=== PATIENT | male | born 1965 | race Caucasian/White ===

== ENCOUNTER 2018-02-23 10:05 | Day surgery (SDC) | payer MEDICAID ==
[2018-02-23] VITALS (10 sets, daily range): BP systolic 106–158; BP diastolic 48–85
[~2018-02-23] VITALS: Ht 182.9 cm; Wt 101.8 kg
[2018-02-23] MEDS ORDERED: diphenhydrAMINE 25mg capsule PO PRN (10:40)
[2018-02-23] MEDS ORDERED: normal saline 1000ml 1,000 ML IV SCH ×2 (10:40→14:10)
[2018-02-23] MEDS ORDERED: nitroGLYCERIN 0.4mg SUBLingual tab SL PRN (10:40)
[2018-02-23] MEDS ORDERED: LORazepam 0.5 MG tablet PO PRN (10:40)
[2018-02-23] MEDS ORDERED: PRAV40TA3 PO (10:44)
[2018-02-23] MEDS ORDERED: ASPI-611 PO (10:44)
[2018-02-23] MEDS ORDERED: marijuana INH (10:44)
[2018-02-23] MEDS ORDERED: ATEN25TA PO (10:44)
[2018-02-23] MEDS ORDERED: DIGO-28 PO (10:44)
[2018-02-23] MEDS ORDERED: LIDOcaine 1% 30ml preserv. free vial ONE (12:11)
[2018-02-23] MEDS ORDERED: iohexol 350 MG/ML 50ML vial IV ONE (12:11)
[2018-02-23] MEDS ORDERED: midazolam 2 mg/2 ml injection ONE ×2 (12:11→12:36)
[2018-02-23] MEDS ORDERED: fentaNYL/PF 50MCG/1 ML 2ML syringe ONE (12:11)
[2018-02-23] MEDS ORDERED: iohexol 350MG/ML 100ml bottle IV ONE (12:11)
[2018-02-23 13:56] LABS: ISTAT Hct MIX 40 %PCV (42-52); ISTAT O2 SATURATION MIX VENOUS 66 % (60-80); ISTAT SOURCE MIX
[2018-02-23 13:56] LABS: ISTAT HGB ART 13.3 g/dl (14.0-18.0); ISTAT Hct ART 39 %PCV (42-52); ISTAT O2 SATURATION ARTERIAL 95 % (95-98); ISTAT SOURCE ART
[2018-02-23] MEDS ORDERED: proCHLORperazine 10 MG/2 ml inj IV PRN (14:10)
[2018-02-23] MEDS ORDERED: OXAZEpam 15mg capsule PO PRN (14:10)
[2018-02-23] MEDS ORDERED: ondansetron/PF 4mg/2ml inj IV PRN (14:10)
[2018-02-23] MEDS ORDERED: HYDROcodone/acetaminophen 10/325mg tab PO PRN (14:10)
[2018-02-23] MEDS ORDERED: HYDROcodone/acetaminophen 5mg/325mg tablet PO PRN (14:10)
== END 2018-02-23 19:10 | disposition home or self-care (01) ==
LOC: SSTAY O 10:05
PROVIDERS: ATTEND Internal Medicine Cardiovascular Disease
DX: I25.10 Atherosclerotic heart disease of native coronary artery without angina pectoris (principal); I48.2 Chronic atrial fibrillation; I10 Essential (primary) hypertension; E78.5 Hyperlipidemia, unspecified; F12.90 Cannabis use, unspecified, uncomplicated; F19.21 Other psychoactive substance dependence, in remission; Z72.89 Other problems related to lifestyle; Z87.891 Personal history of nicotine dependence; Z79.82 Long term (current) use of aspirin; Z88.0 Allergy status to penicillin; Z79.891 Long term (current) use of opiate analgesic; Z79.899 Other long term (current) drug therapy
CPT/HCPCS: 82803; 85014; 93460; 99152; 99153; A6257; C1760; C1769; J1644; J2250; J3010; J3490; J7030; Q0163; Q9967; A4620

== ENCOUNTER 2019-02-27 07:15 | Day surgery (SDC) | payer MEDICAID ==
[2019-02-23 10:10] LABS: CLARITY,URINE CLEAR (Clear); COLOR,URINE YELLOW (Yellow); GLUCOSE, URINE NEGATIVE (Neg); KETONES,URINE NEGATIVE (Neg); LEUKOCYTE ESTERASE ,URINE NEGATIVE (Neg); NITRITES, URINE NEGATIVE (Neg); OCCULT BLOOD,URINE NEGATIVE (Neg); PROTEIN,URINE NEGATIVE (Neg); UROBILINOGEN,URINE 0.2 E.U/dL (0.2-1.0)
[2019-02-23 10:14] LABS: UA COLLECTION TYPE NON-SPECIFIED
[2019-02-23 10:16] LABS: BASOPHILS # (AUTO) 0.1 X10'3 (0-0.2); BASOPHILS % (AUTO) 0.9 % (0-1); EOSINOPHILS # (AUTO) 0.1 X10'3 (0-0.9); EOSINOPHILS % (AUTO) 1.9 % (0-6); LYMPHOCYTES % (AUTO) 28.6 % (21-51); MEAN CORPUSCULAR HGB CONC 34.6 g/dL (33.0-36.5); MEAN CORPUSCULAR VOLUME 89.7 FL (78-98); MEAN PLATELET VOLUME 8.4 FL (7.4-10.4); MONOCYTES # (AUTO) 0.6 X10'3 (0-0.9); MONOCYTES % (AUTO) 8.6 % (2-12); NEUTROPHILS # (AUTO) 4.3 X10'3 (1.8-7.7); PRE OP HEMATOCRIT 45.5 % (42.0-52.0); PRE OP HEMOGLOBIN 15.7 g/dL (14.0-17.9); PRE OP PLATELET COUNT 255 X10'3 (140-440); RED BLOOD COUNT 5.08 X10'6 (4.70-6.10); RED CELL DISTRIBUTION WIDTH 13.4 % (11.5-14.5)
[2019-02-23 10:26] LABS: PRE OP PROTIME 10.9 SECONDS (9.0-12.0)
[2019-02-23 10:27] LABS: ALBUMIN 3.9 G/DL (3.4-5.0); ALKALINE PHOSPHATASE 57 IU/L (46-116); BLOOD UREA NITROGEN 13 MG/DL (7-18); BUN/CREATININE RATIO 13.3 (5.4-32.0); CALCIUM 8.8 MG/DL (8.5-10.1); CHLORIDE 108 MMOL/L (99-107); CREATININE 0.98 MG/DL (0.60-1.10); PRE OP ALT 41 U/L (30-65); PRE OP ANION GAP 8 (8-16); PRE OP AST 24 U/L (10-37); PRE OP BILIRUB, TOTAL 0.4 MG/DL (0.0-1.0); PRE OP GLUCOSE 109 MG/DL (70-104); PRE OP POTASSIUM 4.3 MMOL/L (3.4-5.1); PRE OP SODIUM 144 MMOL/L (135-145); TOTAL CARBON DIOXIDE 28.3 MMOL/L (24-32); TOTAL PROTEIN 7.7 G/DL (6.4-8.2); eGFR 80 ML/MIN
[2019-02-27] VITALS (18 sets, daily range): BP systolic 120–163; BP diastolic 80–105
[~2019-02-27] VITALS: Ht 182.9 cm; Wt 102.1 kg
[~2019-02-27 07:15] MED LIST: ALBU8.5H8 INH; ASPI-611 PO; ATEN25TA PO; DIGO-28 PO; DOCUMENT DATE & TIME OF BETA-BLOCKER PO ONE; PRAV40TA3 PO; TIOT18CA3 INH; albuterol 2.5 MG/3 ML nebule NEB ONE; clindamycin-Cleocin 900mg/D5W 50 ML IV ONE; famotidine 20mg tablet PO ONE; marijuana INH; ringers solution, lacted 1,000 ML IV SCH
[2019-02-27] MEDS ORDERED: ringers solution, lacted 1,000 ML IV SCH ×2 (09:26→09:28)
[2019-02-27] MEDS ORDERED: meperidine/PF 25mg/ml syringe IV PRN ×6 (09:30)
[2019-02-27] MEDS ORDERED: morphine 4 MG/ML inj SYRINge IV PRN ×4 (09:30)
[2019-02-27] MEDS ORDERED: ondansetron/PF 4mg/2ml inj IV PRN ×2 (09:30)
[2019-02-27] MEDS ORDERED: proCHLORperazine 10 MG/2 ml inj IV PRN ×2 (09:30)
[2019-02-27] MEDS ORDERED: BUPIVAcaine/PF 2.5 mg/ml (0.25%) 30ml vial ONE (10:02)
[2019-02-27] MEDS ORDERED: BUPIVACAINE liposomal/PF 13.3 MG/ML vial IM ONE (10:02)
[2019-02-27] MEDS ORDERED: sevoflurane 250ml liquid IH ONE (10:27)
[2019-02-27] MEDS ORDERED: midazolam 2 mg/2 ml injection ONE (10:36)
[2019-02-27] MEDS ORDERED: fentaNYL/PF 50MCG/1 ML 2ML syringe ONE ×2 (10:36→11:14)
[2019-02-27] MEDS ORDERED: LIDOcaine 2% (20mg/ml) 5ml vial ONE (11:14)
[2019-02-27] MEDS ORDERED: propofol inj 20 ML IV ONE (11:14)
[2019-02-27] MEDS ORDERED: ondansetron/PF 4mg/2ml inj ONE (11:16)
[2019-02-27] MEDS ORDERED: dexamethasone sod phosphate 4mg/ml inj. ONE (11:16)
--- NOTE | 2019-02-27 11:53 | NUR ---
Received from OR via BED, accompanied by Anesthesiologist DR SHELTON and report given by Anesthesiologist. PT DROWSY, DENIES PAIN, FOAM TAPE COVERING DRSG TO ANAL AREA, CDI. Addendum: 02/27/19 at 1220 by Roshni Morales RN Amended: Links added.
--- NOTE | 2019-02-27 14:18 | NUR ---
PT AMBULATE TO BATHROOM AND VOID, WAITING FOR HIS RIDE TO SHOW UP. Addendum: 02/27/19 at 1419 by Roshni Morales RN Amended: Links added.
[2019-02-27] MEDS ORDERED: HYDROcodone/acetaminophen 10/325mg tab PO ONE (14:50)
--- NOTE | 2019-02-27 14:53 | NUR ---
TO PAS AWAITING RIDE HOME AT 4P. AWAKE VS WNL, CO MILD TO MOD PAIN RECTAL AREA 6. DSG DI, NO SSD FROM RECTUM. TOLERATES LIQUIDS. PLAN TO MEDICATE FOR PAIN PO,.
--- NOTE | 2019-02-27 14:53 | NUR ---
PT STABLE WAITING FOR HIS RIDE, PT TO [facility] ROOM 247 WHILE WAITING, REPORT TO RECEIVING XIOMARA AMBRIZ. Addendum: 02/27/19 at 1453 by Roshni Morales RN Amended: Links added.
--- NOTE | 2019-02-27 16:03 | NUR ---
AWAKE VS WNL, DSG DI, VOIDED AGAIN CLEAR YELLOW 350ML. PAIN DECREASED AFTER PO MED. DISCH INSTR GIVEN TO PT AND UNDERSTOOD. SITZ BATH GIVEN TO PT TO TAKE HOME . HOME WITH FRIEND.
== END 2019-02-27 16:03 | disposition home or self-care (01) ==
LOC: PAS 07:15
PROVIDERS: ATTEND Surgery
DX: K64.3 Fourth degree hemorrhoids (principal); K64.4 Residual hemorrhoidal skin tags; J44.9 Chronic obstructive pulmonary disease, unspecified; I50.9 Heart failure, unspecified; E66.9 Obesity, unspecified; Z68.30 Body mass index [BMI] 30.0-30.9, adult; Z88.0 Allergy status to penicillin; Z79.899 Other long term (current) drug therapy; Z87.891 Personal history of nicotine dependence
CPT/HCPCS: 36415; 46255; 80053; 81003; 82948; 85025; 85610; 85730; A6224; C9290; J1100; J2001; J2250; J2405; J2704; J3010; J3490; J7120; A4215; A4618; A6449; A7000

== ENCOUNTER 2020-01-10 09:57 | Emergency (ER) | payer MEDICAID ==
[~2020-01-10] VITALS: Ht 182.9 cm; Wt 100.0 kg
[~2020-01-10 09:57] MED LIST changes: -DOCUMENT DATE & TIME OF BETA-BLOCKER PO ONE; -albuterol 2.5 MG/3 ML nebule NEB ONE; -clindamycin-Cleocin 900mg/D5W 50 ML IV ONE; -famotidine 20mg tablet PO ONE; -ringers solution, lacted 1,000 ML IV SCH
[2020-01-10 10:28] LABS: BASOPHILS # (AUTO) 0.1 X10'3 (0-0.2); BASOPHILS % (AUTO) 0.6 % (0-1); EOSINOPHILS # (AUTO) 0.1 X10'3 (0-0.9); EOSINOPHILS % (AUTO) 1.3 % (0-6); HEMATOCRIT 46.6 % (42.0-52.0); HEMOGLOBIN 16.1 g/dl (14.0-17.9); LYMPHOCYTES % (AUTO) 23.4 % (21-51); MEAN CORPUSCULAR HEMOGLOBIN 30.5 PG (27.0-31.0); MEAN CORPUSCULAR HGB CONC 34.4 g/dL (33.0-36.5); MEAN CORPUSCULAR VOLUME 88.4 FL (78-98); MEAN PLATELET VOLUME 8.4 FL (7.4-10.4); MONOCYTES # (AUTO) 0.7 X10'3 (0-0.9); MONOCYTES % (AUTO) 8.3 % (2-12); NEUTROPHILS # (AUTO) 5.6 X10'3 (1.8-7.7); NEUTROPHILS % (AUTO) 66.4 % (42-75); PLATELET COUNT 270 X10'3 (140-440); RED BLOOD COUNT 5.27 X10'6 (4.70-6.10); RED CELL DISTRIBUTION WIDTH 13.7 % (11.5-14.5); WHITE BLOOD COUNT 8.4 X10'3 (4.5-11.0)
[2020-01-10 10:45] LABS: ALANINE AMINOTRANSFERASE 46 U/L (12-78); ALBUMIN/GLOBULIN RATIO 1.2 (1.1-1.5); ALKALINE PHOSPHATASE 62 IU/L (46-116); ANION GAP 8 (8-16); ASPARTATE AMINO TRANSFERASE 29 U/L (10-37); BILIRUBIN,TOTAL 0.5 MG/DL (0.1-1.0); BLOOD UREA NITROGEN 8 MG/DL (7-18); CALCIUM 9.1 MG/DL (8.5-10.1); CHLORIDE 105 MMOL/L (99-107); GLUCOSE 121 MG/DL (70-104); POTASSIUM 3.8 MMOL/L (3.5-5.1); SODIUM 140 MMOL/L (135-145); TOTAL PROTEIN 7.4 G/DL (6.4-8.2); eGFR 78 ML/MIN
[2020-01-10 11:36] VITALS: BP 124/101
== END 2020-01-10 11:38 | disposition home or self-care (01) ==
LOC: ER 09:58
DX: R07.89 Other chest pain (principal); M62.830 Muscle spasm of back; I48.91 Unspecified atrial fibrillation; F12.90 Cannabis use, unspecified, uncomplicated; Z87.891 Personal history of nicotine dependence; Z88.0 Allergy status to penicillin; Z79.82 Long term (current) use of aspirin; Z79.899 Other long term (current) drug therapy
CPT/HCPCS: 36415; 71045; 80053; 83880; 84484; 85025; 93005; 99285

== ENCOUNTER 2021-12-17 11:53 | Inpatient (IN) | payer MEDICAID ==
[~2021-12-17] VITALS: Ht 182.9 cm; Wt 99.5 kg
[~2021-12-17 11:53] MED LIST changes: +ALBU8.5H17 INH; -ALBU8.5H8 INH
[2021-12-17 12:33] LABS: BASOPHILS # (AUTO) 0.1 X10'3 (0-0.2); BASOPHILS % (AUTO) 0.6 % (0-1); EOSINOPHILS # (AUTO) 0.1 X10'3 (0-0.9); HEMATOCRIT 41.6 % (42.0-52.0); HEMOGLOBIN 14.2 g/dl (14.0-17.9); LYMPHOCYTES # (AUTO) 2.9 X10'3 (1.1-4.8); MEAN CORPUSCULAR HEMOGLOBIN 29.3 PG (27.0-31.0); MEAN CORPUSCULAR HGB CONC 34.1 g/dL (33.0-36.5); MEAN CORPUSCULAR VOLUME 86.1 FL (78-98); MEAN PLATELET VOLUME 7.5 FL (7.4-10.4); MONOCYTES # (AUTO) 1.1 X10'3 (0-0.9); MONOCYTES % (AUTO) 9.2 % (2-12); NEUTROPHILS # (AUTO) 8.3 X10'3 (1.8-7.7); NEUTROPHILS % (AUTO) 66.2 % (42-75); PLATELET COUNT 329 X10'3 (140-440); RED BLOOD COUNT 4.84 X10'6 (4.70-6.10); RED CELL DISTRIBUTION WIDTH 15.9 % (11.5-14.5); WHITE BLOOD COUNT 12.5 X10'3 (4.5-11.0)
[2021-12-17 12:44] LABS: ALANINE AMINOTRANSFERASE 43 U/L (12-78); ALBUMIN/GLOBULIN RATIO 1.1 (1.1-1.5); ALKALINE PHOSPHATASE 65 IU/L (46-116); ANION GAP 12 (8-16); ASPARTATE AMINO TRANSFERASE 22 U/L (10-37); BILIRUBIN,TOTAL 0.5 MG/DL (0.1-1.0); BLOOD UREA NITROGEN 14 MG/DL (7-18); BUN/CREATININE RATIO 13.2 (5.4-32.0); CHLORIDE 105 MMOL/L (99-107); CREATININE 1.06 MG/DL (0.60-1.10); GLUCOSE 95 MG/DL (70-104); LIPASE 144 U/L (73-393); POTASSIUM 4.1 MMOL/L (3.5-5.1); SODIUM 141 MMOL/L (135-145); TOTAL CARBON DIOXIDE 24.3 MMOL/L (24-32); TOTAL PROTEIN 7.7 G/DL (6.4-8.2); eGFR 73 ML/MIN
[2021-12-17 12:55] LABS: CALCIUM 8.9 MG/DL (8.5-10.1)
[2021-12-17 16:24] LABS: CLARITY,URINE CLOUDY (Clear); COLOR,URINE YELLOW (Yellow); GLUCOSE, URINE NEGATIVE (Neg); KETONES,URINE NEGATIVE (Neg); LEUKOCYTE ESTERASE ,URINE NEGATIVE (Neg); NITRITES, URINE NEGATIVE (Neg); OCCULT BLOOD,URINE NEGATIVE (Neg); PROTEIN,URINE NEGATIVE (Neg); UROBILINOGEN,URINE 0.2 E.U/dL (0.2-1.0)
[2021-12-17 16:29] LABS: UA COLLECTION TYPE CLN CATCH MIDSTREAM
[2021-12-17 16:30] LABS: HYALINE CASTS 0-3 /LPF (NEGATIVE); MUCUS STRANDS MANY /LPF (Neg); SQUAMOUS EPITHELIAL CELL,UR FEW /LPF (FEW)
[2021-12-17 16:33] LABS: BACTERIA,URINE FEW /HPF (Neg); RBC,URINE 0-2 /HPF (0-2); WBC,URINE 0-4 /HPF (0-4)
[2021-12-17] MEDS ORDERED: iohexol 350MG/ML 100ml bottle IV ONE (18:54)
[2021-12-17] MEDS: diatr meglu/diatrizoate 30ml oral sol.-(3 dose) bottle PO SCH ×3 (20:18→21:30)
[2021-12-17] MEDS ORDERED: magnesium hydroxide 30ml (MOM) UD suspension PO PRN (21:15)
[2021-12-17] MEDS ORDERED: magnesium 4gm in 100ml NS 100 ML IV PRN (21:15)
[2021-12-17] MEDS ORDERED: potassium CL 10mEq/100ml bag 100 ML IV PRN (21:15)
[2021-12-17] MEDS ORDERED: mag hydrox/Alum hydrox/simeth 30ml oral suspension PO PRN (21:15)
[2021-12-17] MEDS ORDERED: acetaminophen 325mg tablet PO PRN (21:15)
[2021-12-17] MEDS ORDERED: POTASSIUM BICARB 20meq eff tab 20 MEQ TABLET.EFF PO PRN ×2 (21:15)
[2021-12-17] MEDS ORDERED: ondansetron/PF 4mg/2ml inj IV PRN (21:15)
[2021-12-17] MEDS ORDERED: magnesium 2GM in 50ml NS 50 ML IV PRN (21:15)
[2021-12-17] MEDS ORDERED: magnesium Cl slow-release 64mg tablet PO PRN (21:15)
[2021-12-17] MEDS: normal saline 1000ml 1,000 ML IV SCH (21:56)
[2021-12-17] MEDS: ciprofloxacin lact 400MG/200ML 200 ML IV SCH (22:23)
[2021-12-17 22:57] LABS: MAGNESIUM 1.5 MG/DL (1.5-2.4); POTASSIUM 3.1 MMOL/L (3.5-5.1)
[2021-12-18] VITALS (22 sets, daily range): BP systolic 120–182; BP diastolic 75–117
--- NOTE | 2021-12-18 00:08 | NUR ---
Patient in room PCU 3014. I have received report from AMANDA SOLANO in ER and had the opportunity to ask questions and will assume patient care when patient arrives on the unit.
[2021-12-18] MEDS: HYDROmorphone inj. 0.5 MG/0.5 ML DISP.SYRIN IV PRN ×4 (00:30→23:58)
[2021-12-18] MEDS: metroNIDAZOLE-Flagyl 500mg/NS 100 ML IV SCH ×4 (00:39→23:59)
--- NOTE | 2021-12-18 06:28 | NUR ---
Problems reprioritized. Patient report given, questions answered & plan of care reviewed with SARAVANAN SOLANO.
[2021-12-18 07:09] LABS: BASOPHILS % (AUTO) 0.5 % (0-1); EOSINOPHILS # (AUTO) 0.1 X10'3 (0-0.9); HEMATOCRIT 38.9 % (42.0-52.0); HEMOGLOBIN 13.7 g/dl (14.0-17.9); LYMPHOCYTES # (AUTO) 1.8 X10'3 (1.1-4.8); LYMPHOCYTES % (AUTO) 28.9 % (21-51); MEAN CORPUSCULAR HEMOGLOBIN 30.1 PG (27.0-31.0); MEAN CORPUSCULAR HGB CONC 35.2 g/dL (33.0-36.5); MEAN CORPUSCULAR VOLUME 85.6 FL (78-98); MEAN PLATELET VOLUME 7.6 FL (7.4-10.4); MONOCYTES # (AUTO) 0.6 X10'3 (0-0.9); MONOCYTES % (AUTO) 9.5 % (2-12); NEUTROPHILS # (AUTO) 3.7 X10'3 (1.8-7.7); NEUTROPHILS % (AUTO) 59.1 % (42-75); PLATELET COUNT 245 X10'3 (140-440); RED BLOOD COUNT 4.55 X10'6 (4.70-6.10); RED CELL DISTRIBUTION WIDTH 15.4 % (11.5-14.5); WHITE BLOOD COUNT 6.3 X10'3 (4.5-11.0)
[2021-12-18 07:20] LABS: ALANINE AMINOTRANSFERASE 36 U/L (12-78); ALBUMIN 3.5 G/DL (3.4-5.0); ALBUMIN/GLOBULIN RATIO 1.1 (1.1-1.5); ALKALINE PHOSPHATASE 69 IU/L (46-116); ANION GAP 10 (8-16); ASPARTATE AMINO TRANSFERASE 23 U/L (10-37); BILIRUBIN,TOTAL 0.7 MG/DL (0.1-1.0); BLOOD UREA NITROGEN 10 MG/DL (7-18); BUN/CREATININE RATIO 11.4 (5.4-32.0); CALCIUM 8.5 MG/DL (8.5-10.1); CHLORIDE 105 MMOL/L (99-107); CREATININE 0.88 MG/DL (0.60-1.10); GLUCOSE 95 MG/DL (70-104); MAGNESIUM 1.7 MG/DL (1.5-2.4); POTASSIUM 3.9 MMOL/L (3.5-5.1); SODIUM 140 MMOL/L (135-145); TOTAL CARBON DIOXIDE 25.4 MMOL/L (24-32); TOTAL PROTEIN 6.8 G/DL (6.4-8.2); eGFR 90 ML/MIN
[2021-12-18] MEDS: docusate sod 100mg capsule PO SCH ×2 (07:22→20:00)
[2021-12-18] MEDS: K and/or MAG REPLACEMENT MC SCH ×2 (08:00→20:07)
[2021-12-18] MEDS: ciprofloxacin lact 400MG/200ML 200 ML IV SCH ×2 (08:59→20:01)
[2021-12-18] MEDS: normal saline 1000ml 1,000 ML IV SCH ×2 (09:45→22:15)
--- NOTE | 2021-12-18 10:54 | NUR ---
PAGER ID: [phone] MESSAGE: Kike Diallo [id number] Pt. going to sx at 1200. Please address med. rec. home meds and specify which medications you would like to be given before sx. Digoxin?? Pavithra [phone]
[2021-12-18] MEDS ORDERED: digoxin 125mcg (0.125mg) tablet PO ONE (11:15)
--- NOTE | 2021-12-18 11:58 | NUR ---
Report called to recovery. Pt. to OR with ex. lap and bowel resection with Br[facility].
[2021-12-18] MEDS ORDERED: fentaNYL /PF 50mcg/ml 5ml ampule ONE (12:31)
[2021-12-18] MEDS ORDERED: propofol inj 20 ML IV ONE (12:31)
[2021-12-18] MEDS ORDERED: midazolam 1 mg/ML 2ml injection ONE (12:31)
[2021-12-18] MEDS ORDERED: ondansetron/PF 4mg/2ml inj ONE (12:32)
[2021-12-18] MEDS ORDERED: glycopyrrolate 0.2mg/ml inj ONE (12:32)
[2021-12-18] MEDS ORDERED: neostigmine methylsulfate 1 MG/ML 10ml vial ONE (12:32)
[2021-12-18] MEDS ORDERED: sevoflurane 250ml liquid IH ONE (12:32)
[2021-12-18] MEDS ORDERED: rocuronium 10mg/ml inj IV ONE ×2 (12:32→13:38)
[2021-12-18] MEDS ORDERED: HYDROmorphone/PF 0.2 MG/ML SYRINGE IV PRN ×2 (12:35)
[2021-12-18] MEDS ORDERED: meperidine/PF 25mg/ml syringe IV PRN ×2 (12:35)
[2021-12-18] MEDS ORDERED: ringers solution, lacted 1,000 ML IV SCH (12:35)
[2021-12-18] MEDS ORDERED: proCHLORperazine 10 MG/2 ml inj IV PRN (12:35)
[2021-12-18] MEDS ORDERED: ketorolac trometh. 30mg/ml inj. IV ONE (12:35)
[2021-12-18] MEDS ORDERED: acetaminophen 1,000mg/100ml IV 100 ML IV PRN (12:35)
[2021-12-18] MEDS ORDERED: ondansetron/PF 4mg/2ml inj IV PRN (12:35)
[2021-12-18] MEDS ORDERED: digoxin 250mcg/ml 2ml ampule ONE (13:39)
[2021-12-18] MEDS ORDERED: dexamethasone sod phosphate 4mg/ml inj. ONE (13:39)
[2021-12-18] MEDS ORDERED: gentamicin 40 MG/1 ML inj ONE (13:52)
[2021-12-18] MEDS ORDERED: fentaNYL/PF 50MCG/1 ML 2ML syringe ONE (14:21)
[2021-12-18] MEDS ORDERED: BUPIVAcaine/PF 2.5 mg/ml (0.25%) 30ml vial ONE (14:53)
[2021-12-18] MEDS ORDERED: BUPIVACAINE liposomal/PF 13.3 MG/ML vial IM ONE (14:53)
[2021-12-18] MEDS ORDERED: naloxone 0.4 mg/ml inj IV PRN (15:00)
--- NOTE | 2021-12-18 15:16 | NUR ---
Received from OR via BED , accompanied by Anesthesiologist ANITHA and OR NURSE report given by Anesthesiolgist. PT DROWSY AWAKENS TO PAIN. SURGICAL [place] DRESSING; SPOTTY WITH BLOOD MARKED AND WILL CONT TO ASSESS; MORRO DRAIN IN PLACE WITH JUANITO. MOISES/CLARY; MEDICATED FOR PAIN UPON ARRIVAL. BURNETT IN PLACE DRAINING CLEAR YELLOW URINE. HTN ON MASK AT 8LPM. Addendum: 12/18/21 at 1536 by Zhanna Pendleton RN Amended: Links added.
[2021-12-18] MEDS: meperidine/PF 25mg/ml syringe IV PRN ×2 (15:24→15:51)
--- NOTE | 2021-12-18 16:30 | NUR ---
Received report from recovery. Awaiting pt. arrival.
--- NOTE | 2021-12-18 16:36 | NUR ---
CARE OF PATIENT AND REPORT HAS BEEN CALLED. ALL QUESTIONS ANSWERED TO ACCEPTING RN. PATIENT HAS MET ALL CRITERIA FOR TRANSFER TO THE PCU FLOOR. VSS. DRESSINGS INTACT. BED LOW, CALL LIGHT PRESENT AND 2 RAILS UP. RN PRESENT TO ACCEPT Addendum: 12/18/21 at 1644 by Zhanna Pendleton RN Amended: Links added.
--- NOTE | 2021-12-18 16:50 | NUR ---
PAGER ID: [phone] MESSAGE: Kike Diallo [id number] Pt. was in aflutter in surgery per report. HR in 110-120s. As post op arrival to floor pt's HR in 40s-50s. Pt. pre-op ekg shows afib. Do you want pt. on tele monitor? Pavithra [phone]
--- NOTE | 2021-12-18 18:40 | NUR ---
Report given to Thao Chun RN.
--- NOTE | 2021-12-18 18:55 | NUR ---
1814 Report given to this RN from XIOMARA Arshad. Pt resting in bed with post op vitals connected and in no acute distress. 1849 Report given to XIOMARA Goldman. Questions answered. Pt in no acute distress at time of handoff.
--- NOTE | 2021-12-18 19:00 | NUR ---
Patient in room PCU 3014. I have received report from Thao SOLANO and had the opportunity to ask questions and assume patient care.
[2021-12-18] MEDS ORDERED: atenolol 25mg tablet PO SCH (21:00)
[2021-12-18] MEDS: aspirin 81mg, enteric-coated 1 TAB TABLET.DR PO SCH (22:43)
[2021-12-18] MEDS: digoxin 125mcg (0.125mg) tablet PO SCH (22:44)
[2021-12-18] MEDS: gabapentin 300mg capsule PO SCH (22:45)
[2021-12-19] VITALS (8 sets, daily range): BP systolic 120–173; BP diastolic 75–106
--- NOTE | 2021-12-19 00:13 | NUR ---
Called Dr. Chung requesting sleeping RX for pt per his request. Dr. Chung ordered Melatonin 3mg PO HS PRN. Order put into system
[2021-12-19] MEDS ORDERED: Melatonin 3mg tablet PO PRN (00:20)
[2021-12-19] MEDS ORDERED: sucralfate 1 gm tablet PO ONE (00:40)
[2021-12-19] MEDS: HYDROcodone/acetaminophen 10/325mg tab PO PRN ×5 (02:52→22:55)
[2021-12-19] MEDS: HYDROmorphone inj. 0.5 MG/0.5 ML DISP.SYRIN IV PRN ×4 (04:16→20:57)
--- NOTE | 2021-12-19 05:47 | NUR ---
REVIEWED AMERICANIZATION TEACHER CHARTING AND IN AGREEMENT. PT HAS REQUIRED IV PAIN MEDICATION ABOUT EVERY 4HRS. ENCOURAGED PT TO WALK AND TOLD HIM REASONS IT WAS IMPORTANT, STATES I WILL GET UP THE FIRST THING IN THE MORNING I UNDERSTAND.
--- NOTE | 2021-12-19 06:22 | NUR ---
Problems reprioritized. Patient report given, questions answered & plan of care reviewed with Pavithra SOLANO.
[2021-12-19 06:23] LABS: ALANINE AMINOTRANSFERASE 28 U/L (12-78); ALBUMIN 3.2 G/DL (3.4-5.0); ALBUMIN/GLOBULIN RATIO 0.9 (1.1-1.5); ALKALINE PHOSPHATASE 60 IU/L (46-116); ANION GAP 11 (8-16); ASPARTATE AMINO TRANSFERASE 21 U/L (10-37); BILIRUBIN,TOTAL 0.6 MG/DL (0.1-1.0); BLOOD UREA NITROGEN 10 MG/DL (7-18); CALCIUM 8.2 MG/DL (8.5-10.1); CHLORIDE 104 MMOL/L (99-107); CREATININE 0.91 MG/DL (0.60-1.10); GLUCOSE 130 MG/DL (70-104); MAGNESIUM 1.5 MG/DL (1.5-2.4); POTASSIUM 4.4 MMOL/L (3.5-5.1); SODIUM 140 MMOL/L (135-145); TOTAL CARBON DIOXIDE 24.9 MMOL/L (24-32); TOTAL PROTEIN 6.8 G/DL (6.4-8.2); eGFR 86 ML/MIN
[2021-12-19 06:26] LABS: BASOPHILS % (AUTO) 0.1 % (0-1); EOSINOPHILS % (AUTO) 0 % (0-6); HEMATOCRIT 41.8 % (42.0-52.0); HEMOGLOBIN 14.5 g/dl (14.0-17.9); LYMPHOCYTES # (AUTO) 0.7 X10'3 (1.1-4.8); LYMPHOCYTES % (AUTO) 5.2 % (21-51); MEAN CORPUSCULAR HEMOGLOBIN 29.9 PG (27.0-31.0); MEAN CORPUSCULAR HGB CONC 34.5 g/dL (33.0-36.5); MEAN CORPUSCULAR VOLUME 86.4 FL (78-98); MEAN PLATELET VOLUME 7.9 FL (7.4-10.4); MONOCYTES # (AUTO) 0.9 X10'3 (0-0.9); NEUTROPHILS # (AUTO) 11.5 X10'3 (1.8-7.7); NEUTROPHILS % (AUTO) 87.7 % (42-75); PLATELET COUNT 273 X10'3 (140-440); RED BLOOD COUNT 4.84 X10'6 (4.70-6.10); RED CELL DISTRIBUTION WIDTH 15.7 % (11.5-14.5); WHITE BLOOD COUNT 13.2 X10'3 (4.5-11.0)
[2021-12-19] MEDS: metroNIDAZOLE-Flagyl 500mg/NS 100 ML IV SCH ×2 (07:36→15:57)
[2021-12-19] MEDS: gabapentin 300mg capsule PO SCH ×3 (07:37→21:04)
[2021-12-19] MEDS: docusate sod 100mg capsule PO SCH ×2 (07:37→20:56)
[2021-12-19] MEDS: ipratropium 0.5 MG/2.5ML nebule NEB SCH ×3 (07:44→15:00)
[2021-12-19] MEDS: K and/or MAG REPLACEMENT MC SCH ×2 (08:00→20:00)
--- NOTE | 2021-12-19 08:08 | NUR ---
Pt. ambulated 600 ft SBA. Did fairly weell although c/o some pain. Kyle already administered, waiting for it to work. Federica MCKEON'nino. 300ml OP from f/c. Pt. immediately voided 100ml straw urine. MORRO with 50ml out.Pt. eating and tolerating CL diet at this time.
[2021-12-19] MEDS: ciprofloxacin lact 400MG/200ML 200 ML IV SCH ×2 (09:05→20:56)
--- NOTE | 2021-12-19 12:15 | NUR ---
PAGER ID: [phone] MESSAGE: Kike Diallo [id number] Pt's HR elevated in 160s-170s again however this time he was not ambulating just standing to urinate. Course a-fib. Pavithra [phone]
--- NOTE | 2021-12-19 12:18 | NUR ---
Lab called. Peritoneal swab culture for AFB unable to test. Lab states they would need actual fluid sample. Paged surgeon.
--- NOTE | 2021-12-19 18:45 | NUR ---
Patient in room PCU 3014. I have received report from Pavithra bro and had the opportunity to ask questions and assume patient care.
--- NOTE | 2021-12-19 19:04 | NUR ---
Report given to Susi RAMOS.
[2021-12-19] MEDS: aspirin 81mg, enteric-coated 1 TAB TABLET.DR PO SCH (20:56)
[2021-12-19] MEDS: digoxin 125mcg (0.125mg) tablet PO SCH (21:04)
[2021-12-19] MEDS ORDERED: diltiazem CD 120mg capsule (once-daily) PO ONE ×2 (23:40→23:45)
[2021-12-19] MEDS ORDERED: diltiazem 5mg/ml 5ml inj. IV ONE (23:40)
[2021-12-20] MEDS: metroNIDAZOLE-Flagyl 500mg/NS 100 ML IV SCH ×3 (00:29→15:29)
[2021-12-20] MEDS: HYDROmorphone inj. 0.5 MG/0.5 ML DISP.SYRIN IV PRN ×3 (01:30→19:20)
[2021-12-20 02:00] VITALS: BP 148/81
[2021-12-20] MEDS: HYDROcodone/acetaminophen 10/325mg tab PO PRN ×3 (03:33→15:28)
--- NOTE | 2021-12-20 04:04 | NUR ---
AGREE WITH MARKETING DATABASE COORDINATOR PHYSICAL ASSESSMENT CHARTED
[2021-12-20 06:00] VITALS: BP 129/98
--- NOTE | 2021-12-20 06:35 | NUR ---
Problems reprioritized. Patient report given, questions answered & plan of care reviewed with Prema SOLANO.
[2021-12-20 06:54] LABS: BASOPHILS % (AUTO) 0.2 % (0-1); EOSINOPHILS # (AUTO) 0.1 X10'3 (0-0.9); EOSINOPHILS % (AUTO) 0.7 % (0-6); HEMATOCRIT 38.4 % (42.0-52.0); HEMOGLOBIN 13.2 g/dl (14.0-17.9); LYMPHOCYTES # (AUTO) 1.2 X10'3 (1.1-4.8); LYMPHOCYTES % (AUTO) 11.4 % (21-51); MEAN CORPUSCULAR HEMOGLOBIN 29.5 PG (27.0-31.0); MEAN CORPUSCULAR HGB CONC 34.3 g/dL (33.0-36.5); MEAN CORPUSCULAR VOLUME 85.9 FL (78-98); MEAN PLATELET VOLUME 7.9 FL (7.4-10.4); MONOCYTES # (AUTO) 0.9 X10'3 (0-0.9); MONOCYTES % (AUTO) 8.4 % (2-12); NEUTROPHILS % (AUTO) 79.3 % (42-75); PLATELET COUNT 240 X10'3 (140-440); RED BLOOD COUNT 4.47 X10'6 (4.70-6.10); RED CELL DISTRIBUTION WIDTH 15.7 % (11.5-14.5); WHITE BLOOD COUNT 10.1 X10'3 (4.5-11.0)
[2021-12-20 07:05] LABS: ALANINE AMINOTRANSFERASE 21 U/L (12-78); ALBUMIN 3.1 G/DL (3.4-5.0); ALBUMIN/GLOBULIN RATIO 0.9 (1.1-1.5); ALKALINE PHOSPHATASE 53 IU/L (46-116); ANION GAP 7 (8-16); ASPARTATE AMINO TRANSFERASE 15 U/L (10-37); BILIRUBIN,TOTAL 0.5 MG/DL (0.1-1.0); BLOOD UREA NITROGEN 9 MG/DL (7-18); BUN/CREATININE RATIO 10.8 (5.4-32.0); CALCIUM 8.2 MG/DL (8.5-10.1); CHLORIDE 104 MMOL/L (99-107); CREATININE 0.83 MG/DL (0.60-1.10); GLUCOSE 104 MG/DL (70-104); MAGNESIUM 1.7 MG/DL (1.5-2.4); POTASSIUM 3.6 MMOL/L (3.5-5.1); SODIUM 140 MMOL/L (135-145); TOTAL CARBON DIOXIDE 28.6 MMOL/L (24-32); TOTAL PROTEIN 6.6 G/DL (6.4-8.2); eGFR > 90 ML/MIN
[2021-12-20] MEDS: gabapentin 300mg capsule PO SCH ×3 (07:31→20:37)
[2021-12-20] MEDS: docusate sod 100mg capsule PO SCH ×2 (07:31→20:00)
[2021-12-20] MEDS: K and/or MAG REPLACEMENT MC SCH ×2 (07:32→20:00)
[2021-12-20] MEDS: ciprofloxacin lact 400MG/200ML 200 ML IV SCH ×2 (08:58→20:42)
[2021-12-20] MEDS ORDERED: metroNIDAZOLE 500mg tablet PO SCH (16:00)
[2021-12-20] MEDS: digoxin 125mcg (0.125mg) tablet PO SCH (16:04)
--- NOTE | 2021-12-20 16:04 | NUR ---
Per Dr Hallman, give 250mcg digoxin at HS one time, tonight instead of lower dose of 125mcg that is his usual dose and then resume 125mcg as usual after tonight.
[2021-12-20 16:11] VITALS: BP 146/99
[2021-12-20 18:00] VITALS: BP 147/98
--- NOTE | 2021-12-20 18:23 | NUR ---
Report given to Ella SOLANO, Patient doing well, not requiring as much for pain meds, doing well on full liquid diet. No current complaints or concerns. NOC RN to monitor HR.
[2021-12-20] MEDS: aspirin 81mg, enteric-coated 1 TAB TABLET.DR PO SCH (20:37)
[2021-12-20] MEDS ORDERED: digoxin 250mcg (0.25mg) tablet PO ONE (21:00)
[2021-12-21] MEDS: HYDROmorphone inj. 0.5 MG/0.5 ML DISP.SYRIN IV PRN
[2021-12-21] MEDS: metroNIDAZOLE-Flagyl 500mg/NS 100 ML IV SCH ×3 (00:01→15:58)
[2021-12-21 02:00] VITALS: BP 144/101
[2021-12-21] MEDS: HYDROcodone/acetaminophen 10/325mg tab PO PRN ×3 (04:16→20:57)
[2021-12-21 07:00] VITALS: BP 134/94
[2021-12-21 07:20] LABS: BASOPHILS % (AUTO) 0.4 % (0-1); EOSINOPHILS % (AUTO) 3.3 % (0-6); HEMATOCRIT 42.5 % (42.0-52.0); HEMOGLOBIN 14.3 g/dl (14.0-17.9); LYMPHOCYTES # (AUTO) 1.5 X10'3 (1.1-4.8); LYMPHOCYTES % (AUTO) 15.5 % (21-51); MEAN CORPUSCULAR HEMOGLOBIN 29.6 PG (27.0-31.0); MEAN CORPUSCULAR HGB CONC 33.6 g/dL (33.0-36.5); MEAN CORPUSCULAR VOLUME 88.1 FL (78-98); MEAN PLATELET VOLUME 8.1 FL (7.4-10.4); MONOCYTES # (AUTO) 1.1 X10'3 (0-0.9); MONOCYTES % (AUTO) 11.1 % (2-12); NEUTROPHILS # (AUTO) 6.9 X10'3 (1.8-7.7); NEUTROPHILS % (AUTO) 69.7 % (42-75); PLATELET COUNT 236 X10'3 (140-440); RED BLOOD COUNT 4.83 X10'6 (4.70-6.10); RED CELL DISTRIBUTION WIDTH 15.6 % (11.5-14.5); WHITE BLOOD COUNT 9.9 X10'3 (4.5-11.0)
[2021-12-21 07:21] LABS: EOSINOPHILS # (AUTO) 0.3 X10'3 (0-0.9)
[2021-12-21] MEDS: K and/or MAG REPLACEMENT MC SCH ×2 (08:00→20:00)
[2021-12-21] MEDS ORDERED: digoxin 250mcg (0.25mg) tablet PO ONE (08:45)
[2021-12-21] MEDS: ciprofloxacin lact 400MG/200ML 200 ML IV SCH (08:50)
[2021-12-21] MEDS: docusate sod 100mg capsule PO SCH ×2 (08:50→20:56)
[2021-12-21] MEDS: gabapentin 300mg capsule PO SCH ×3 (08:50→20:58)
[2021-12-21] MEDS: HYDROmorphone/PF 0.2 MG/ML SYRINGE IV PRN ×2 (08:52→15:58)
[2021-12-21 09:24] LABS: ALANINE AMINOTRANSFERASE 20 U/L (12-78); ALBUMIN 3.2 G/DL (3.4-5.0); ALBUMIN/GLOBULIN RATIO 0.8 (1.1-1.5); ALKALINE PHOSPHATASE 58 IU/L (46-116); ANION GAP 7 (8-16); ASPARTATE AMINO TRANSFERASE 17 U/L (10-37); BILIRUBIN,TOTAL 0.6 MG/DL (0.1-1.0); BLOOD UREA NITROGEN 9 MG/DL (7-18); BUN/CREATININE RATIO 10.8 (5.4-32.0); CALCIUM 8.6 MG/DL (8.5-10.1); CHLORIDE 104 MMOL/L (99-107); CREATININE 0.83 MG/DL (0.60-1.10); GLUCOSE 108 MG/DL (70-104); MAGNESIUM 1.8 MG/DL (1.5-2.4); POTASSIUM 3.8 MMOL/L (3.5-5.1); SODIUM 139 MMOL/L (135-145); TOTAL CARBON DIOXIDE 27.7 MMOL/L (24-32); eGFR > 90 ML/MIN
[2021-12-21 11:00] VITALS: BP 133/87
[2021-12-21 15:00] VITALS: BP 90/50
--- NOTE | 2021-12-21 15:45 | NUR ---
patient walks frequently around the unit. He has walked at least 1200ft every 4 hours on my shift.
[2021-12-21 18:00] VITALS: BP 110/77
--- NOTE | 2021-12-21 18:21 | NUR ---
Problems reprioritized. Patient report given, questions answered & plan of care reviewed with Ella SOLANO. Patient resting in bed in no acute distress.
[2021-12-21] MEDS: aspirin 81mg, enteric-coated 1 TAB TABLET.DR PO SCH (20:56)
[2021-12-21] MEDS: digoxin 125mcg (0.125mg) tablet PO SCH (21:02)
[2021-12-21] MEDS: ciprofloxacin 250mg tablet PO SCH (21:02)
[2021-12-21 22:00] VITALS: BP 132/91
[2021-12-21] MEDS: metroNIDAZOLE 500mg tablet PO SCH (23:56)
[2021-12-22] MEDS: HYDROcodone/acetaminophen 10/325mg tab PO PRN ×2 (05:40→09:47)
--- NOTE | 2021-12-22 06:36 | NUR ---
Patient in room PCU 3014. I have received report from Ella SOLANO and had the opportunity to ask questions and assume patient care.
[2021-12-22 07:00] VITALS: BP 136/95
[2021-12-22 07:27] LABS: BASOPHILS # (AUTO) 0.1 X10'3 (0-0.2); BASOPHILS % (AUTO) 0.7 % (0-1); EOSINOPHILS # (AUTO) 0.6 X10'3 (0-0.9); EOSINOPHILS % (AUTO) 6.8 % (0-6); HEMOGLOBIN 14.3 g/dl (14.0-17.9); LYMPHOCYTES # (AUTO) 1.7 X10'3 (1.1-4.8); LYMPHOCYTES % (AUTO) 19.5 % (21-51); MEAN CORPUSCULAR HEMOGLOBIN 29.9 PG (27.0-31.0); MEAN CORPUSCULAR HGB CONC 34.9 g/dL (33.0-36.5); MEAN CORPUSCULAR VOLUME 85.8 FL (78-98); MEAN PLATELET VOLUME 7.8 FL (7.4-10.4); MONOCYTES # (AUTO) 0.8 X10'3 (0-0.9); MONOCYTES % (AUTO) 9.1 % (2-12); NEUTROPHILS # (AUTO) 5.6 X10'3 (1.8-7.7); NEUTROPHILS % (AUTO) 63.9 % (42-75); PLATELET COUNT 291 X10'3 (140-440); RED BLOOD COUNT 4.77 X10'6 (4.70-6.10); RED CELL DISTRIBUTION WIDTH 15.9 % (11.5-14.5); WHITE BLOOD COUNT 8.8 X10'3 (4.5-11.0)
[2021-12-22 07:44] LABS: ALANINE AMINOTRANSFERASE 26 U/L (12-78); ALBUMIN 3.2 G/DL (3.4-5.0); ALBUMIN/GLOBULIN RATIO 0.8 (1.1-1.5); ALKALINE PHOSPHATASE 57 IU/L (46-116); ANION GAP 10 (8-16); ASPARTATE AMINO TRANSFERASE 25 U/L (10-37); BILIRUBIN,TOTAL 0.7 MG/DL (0.1-1.0); BLOOD UREA NITROGEN 11 MG/DL (7-18); BUN/CREATININE RATIO 13.3 (5.4-32.0); CALCIUM 8.8 MG/DL (8.5-10.1); CHLORIDE 104 MMOL/L (99-107); CREATININE 0.83 MG/DL (0.60-1.10); GLUCOSE 114 MG/DL (70-104); POTASSIUM 3.7 MMOL/L (3.5-5.1); SODIUM 141 MMOL/L (135-145); TOTAL CARBON DIOXIDE 27.3 MMOL/L (24-32); TOTAL PROTEIN 7.2 G/DL (6.4-8.2); eGFR > 90 ML/MIN
[2021-12-22] MEDS: K and/or MAG REPLACEMENT MC SCH (08:00)
[2021-12-22] MEDS: docusate sod 100mg capsule PO SCH (08:05)
[2021-12-22] MEDS: metroNIDAZOLE 500mg tablet PO SCH (08:05)
[2021-12-22] MEDS: gabapentin 300mg capsule PO SCH ×2 (08:05→12:00)
--- NOTE | 2021-12-22 09:04 | NUR ---
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 Previously on Clears/Full liquid diet w/ ~50% intake of meals, advanced to Regular diet yesterday 12/21 w/ 25% intake of first meal. Recommend changing to Low Fiber diet given recent GI surgery. LBM 12/21 receiving routine colace. Will continue to monitor PO trends and need for nutrition intervention. Recs; 1. Change to Low Fiber diet 2. Monitor need for ONS 3. Bowel care per MD 4. Scaled wts Addendum: 12/22/21 at [address] Amended: Links added.
[2021-12-22] MEDS: ciprofloxacin 250mg tablet PO SCH (09:45)
[2021-12-22] MEDS ORDERED: METR-159 PO (10:27)
[2021-12-22] MEDS ORDERED: CIPR-429 PO (10:27)
[2021-12-22] MEDS ORDERED: HYDR-3965 PO (10:27)
[2021-12-22 11:00] VITALS: BP 124/86
[2021-12-22] MEDS: HYDROmorphone/PF 0.2 MG/ML SYRINGE IV PRN (11:45)
--- NOTE | 2021-12-22 12:17 | NUR ---
drain removed no complications covered with sterile gauze and tegaderm. PIV x2 removed with cannula intact.
--- NOTE | 2021-12-22 13:46 | NUR ---
pt walked 1200 ft x3
--- NOTE | 2021-12-22 14:51 | NUR ---
Patient was DC to home and picked up by a friend. [facility] [place] and [facility] RX was handed to patient. Patient took all belongings with him. DC instructions and warning s/s were reviewed with the patient and he verbalized understanding. Patient was alert, oriented, and appropriate at time of DC . I walked patient to the lobby where he met his friend and they walked out .
== END 2021-12-22 14:41 | disposition home or self-care (01) | DRG 230 ==
LOC: ER 11:54 → ED HOLD 21:18 → PCU 3S 23:59
PROVIDERS: ADMIT Internal Medicine; ATTEND Family Medicine
PROC: 0DB80ZZ Excision of Small Intestine, Open Approach (ICD-10-PCS; principal; 2021-12-17)
PROC: 0DBN0ZZ Excision of Sigmoid Colon, Open Approach (ICD-10-PCS; 2021-12-17)
PROC: 0DNW0ZZ Release Peritoneum, Open Approach (ICD-10-PCS; 2021-12-17)
PROC: BW211ZZ Computerized Tomography (CT Scan) of Abdomen and Pelvis using Low Osmolar Contrast (ICD-10-PCS; 2021-12-17)
PROC: 3E0T3BZ Introduction of Anesthetic Agent into Peripheral Nerves and Plexi, Percutaneous Approach (ICD-10-PCS; 2021-12-18)
PROC: 3E0T33Z Introduction of Anti-inflammatory into Peripheral Nerves and Plexi, Percutaneous Approach (ICD-10-PCS; 2021-12-18)
DX: K63.2 Fistula of intestine (principal); L02.211 Cutaneous abscess of abdominal wall; K57.32 Diverticulitis of large intestine without perforation or abscess without bleeding; Z20.822 Contact with and (suspected) exposure to COVID-19; I48.0 Paroxysmal atrial fibrillation; J44.9 Chronic obstructive pulmonary disease, unspecified; E78.5 Hyperlipidemia, unspecified; K66.0 Peritoneal adhesions (postprocedural) (postinfection); E87.6 Hypokalemia; Z79.82 Long term (current) use of aspirin; Z87.891 Personal history of nicotine dependence; Z88.0 Allergy status to penicillin; Z79.899 Other long term (current) drug therapy; Z86.16 Personal history of COVID-19
CPT/HCPCS: 36415; 71045; 74176; 74177; 80053; 80162; 81001; 82948; 83605; 83690; 83735; 84132; 84145; 85025; 85730; 86885; 86900; 86901; 87040; 87070; 87075; 87081; 87102; 87635; 94760; 99285; A4615; A4618; A6212; A6213; A6258; A6402; A6407; A6449; A7000; C1758; C9290; G0378; J0131; J0744; J1100; J1160; J1170; J1580; J1885; J2175; J2250; J2405; J2704; J2710; J3010; J3490; J7030; J7040; J7120; Q9963; Q9967